=== PATIENT | male | born 1945 | race Two or more races ===

== ENCOUNTER 2018-06-30 07:09 | Outpatient (CLI) | payer OTHER | END 2018-06-30 07:22 | disposition home or self-care (01) | LOC: SONOGRAMA 07:09 → MAMO-SONO 07:15 → SONOGRAMA 07:22 | DX: K76.0 Fatty (change of) liver, not elsewhere classified (principal) ==

== ENCOUNTER → 2018-12-02 | Outpatient (CLI) | payer OTHER | END | disposition home or self-care (01) | LOC: TOM 08:30 | DX: K56.600 Partial intestinal obstruction, unspecified as to cause (principal) ==

== ENCOUNTER 2019-06-19 04:23 | Emergency (ER) | payer OTHER ==
[~2019-06-19] VITALS: Ht 167.6 cm; Wt 81.6 kg
[2019-06-19] MEDS ORDERED: METFORMIN HCL1000 M2 PO (05:22)
[2019-06-19] MEDS ORDERED: TAMS0.4C PO (05:22)
[2019-06-19] MEDS ORDERED: CILOSTAZOL100 MG PO (05:33)
== END 2019-06-19 05:56 | disposition home or self-care (01) ==
LOC: ER 04:23
DX: S80.02XA Contusion of left knee, initial encounter (principal); S80.01XA Contusion of right knee, initial encounter; G47.62 Sleep related leg cramps; W18.09XA Striking against other object with subsequent fall, initial encounter; Y93.84 Activity, sleeping; Y92.013 Bedroom of single-family (private) house as the place of occurrence of the external cause; Y99.8 Other external cause status

== ENCOUNTER 2019-07-24 09:51 | Outpatient (CLI) | payer OTHER ==
[~2019-07-24 09:51] MED LIST: CILOSTAZOL100 MG PO; METFORMIN HCL1000 M2 PO; TAMS0.4C PO
== END 2019-07-24 10:03 | disposition home or self-care (01) ==
LOC: RAD 09:51 → NUCLEAR 09:51
DX: G30.1 Alzheimer's disease with late onset (principal)

== ENCOUNTER 2020-03-01 07:55 | Outpatient (CLI) | payer OTHER | END 2020-03-01 08:04 | disposition home or self-care (01) | LOC: RAD 07:55 | PROVIDERS: ATTEND General Practice | DX: M19.012 Primary osteoarthritis, left shoulder (principal) ==

== ENCOUNTER 2022-01-05 08:56 | Outpatient (CLI) | payer OTHER | END 2022-01-05 09:03 | disposition home or self-care (01) | LOC: RAD 08:56 | PROVIDERS: ATTEND Ophthalmology | DX: Z98.42 Cataract extraction status, left eye (principal); H25.012 Cortical age-related cataract, left eye ==

== ENCOUNTER → 2022-01-16 09:01 | Outpatient (CLI) | payer OTHER | END | disposition home or self-care (01) | LOC: LAB 09:01 | PROVIDERS: ATTEND Ophthalmology | DX: I10 Essential (primary) hypertension (principal); I11.9 Hypertensive heart disease without heart failure ==

== ENCOUNTER 2022-06-27 10:21 | Outpatient (CLI) | payer OTHER | END 2022-06-27 10:35 | disposition home or self-care (01) | LOC: TOM 10:21 | PROVIDERS: ATTEND General Practice | DX: G30.1 Alzheimer's disease with late onset (principal) ==

== ENCOUNTER 2023-02-26 09:47 | Outpatient (CLI) | payer OTHER | END 2023-02-26 09:49 | disposition home or self-care (01) | LOC: RX STUDY 09:47 | PROVIDERS: ATTEND General Practice | DX: N13.1 Hydronephrosis with ureteral stricture, not elsewhere classified (principal) ==